=== PATIENT | female | born 1980 | race Caucasian/White ===

== ENCOUNTER 2017-12-04 16:39 | Emergency (ER) | payer SELFPAY ==
[~2017-12-04] VITALS: Ht 165.1 cm; Wt 68.0 kg
[~2017-12-04 16:39] MED LIST: ALPR1 PO; ARIP10 PO; FLUO10 PO; LAMO25 PO; LORA1 PO; OMEP20ER PO; OXYACE5T PO; RANI150 PO; RXOXYACE PO
[2017-12-04] MEDS ORDERED: CLON.2 PO (16:45)
[2017-12-04] MEDS ORDERED: GABA300 PO (16:45)
[2017-12-04] MEDS ORDERED: MIRT30 PO (16:46)
[2017-12-04] MEDS ORDERED: Cipro500 MG PO (17:23)
== END 2017-12-04 17:26 | disposition home or self-care (01) ==
LOC: ER 16:39
DX: R23.8 Other skin changes (principal); L08.9 Local infection of the skin and subcutaneous tissue, unspecified; F17.210 Nicotine dependence, cigarettes, uncomplicated; Z88.8 Allergy status to other drugs, medicaments and biological substances; Z88.1 Allergy status to other antibiotic agents; Z79.899 Other long term (current) drug therapy
CPT/HCPCS: 99283; J1885

== ENCOUNTER 2018-03-09 16:16 | Emergency (ER) | payer OTHER ==
[~2018-03-09] VITALS: Ht 165.1 cm; Wt 68.0 kg
[~2018-03-09 16:16] MED LIST changes: +CLON.2 PO; +Cipro500 MG PO; +GABA300 PO; +MIRT30 PO
== END 2018-03-09 19:07 | disposition home or self-care (01) ==
LOC: ER 16:16
DX: S00.83XA Contusion of other part of head, initial encounter (principal); S00.03XA Contusion of scalp, initial encounter; F20.9 Schizophrenia, unspecified; F15.259 Other stimulant dependence with stimulant-induced psychotic disorder, unspecified; F41.9 Anxiety disorder, unspecified; F32.9 Major depressive disorder, single episode, unspecified; F43.10 Post-traumatic stress disorder, unspecified; F17.210 Nicotine dependence, cigarettes, uncomplicated; Z88.1 Allergy status to other antibiotic agents; Z88.8 Allergy status to other drugs, medicaments and biological substances; X58.XXXA Exposure to other specified factors, initial encounter
CPT/HCPCS: 99283